=== PATIENT | male | born 1965 | race Caucasian/White ===

== ENCOUNTER → 2022-05-04 | Outpatient (CLI) | payer MEDICAID ==
[2022-05-04 17:04] LABS: Basophils # (A) 0.04 X 10*3/uL (0.00-0.10); Basophils % (A) 0.6 %; Eosinophils # (A) 0.14 X 10*3/uL (0.04-0.35); HCT 48.4 % (39.6-50.0); HGB 16.4 g/dL (13.0-17.0); Immature Grans, Automated 0.1 %; Lymphocytes # (A) 2.42 X 10*3/uL (0.90-5.00); Lymphocytes % (A) 33.8 %; MCH 31.4 pg (27.0-32.0); MCHC 33.9 g/dL (32.0-37.0); MCV 92.5 fL (80.0-97.0); Mean Platelet Volume 10.7 fL (9.5-12.2); Monocytes # (A) 0.53 X 10*3/uL (0.20-1.00); Monocytes % (A) 7.4 %; NRBC Per 100 WBC 0 /100 WBCS (0.0-0.0); Neutrophils # (A) 4.01 X 10*3/uL (1.80-7.70); Neutrophils % (A) 56.1 %; Platelet Count 302 X 10*3/uL (140-440); RBC 5.23 X 10*6/uL (4.40-5.60); RDW 12.9 % (11.5-14.5); WBC 7.15 X 10*3/uL (4.50-10.00)
[2022-05-04 17:22] LABS: ALT 51 U/L (10-49); AST 25 U/L (14-35); African American GFR (CKD) 102.8 (60.0-200.0); Albumin 4.8 g/dL (3.8-4.9); Albumin/Globulin Ratio 1.79 (1.60-3.17); Alkaline Phosphatase 81 U/L (41-126); BUN/Creat Ratio 11.05 Ratio (12.00-20.00); Blood Urea Nitrogen 10.6 mg/dL (9.0-27.0); Calcium 9.5 mg/dL (8.7-10.3); Carbon Dioxide 22.5 mmol/L (20.0-27.5); Chloride 106 mmol/L (96-109); Chol/HDL Ratio 4.98 Ratio; Globulin 2.7 g/dL (1.6-3.3); Glucose 125 mg/dL (70-110); LDL Cholesterol,Calculated 172.8 mg/dL (0.0-131.0); Non-African American GFR(CKD) 88.7 (60.0-200.0); Potassium 4.2 mmol/L (3.5-5.5); Sodium 140 mmol/L (135-145); Total Protein 7.5 g/dL (6.2-8.2)
== END | disposition home or self-care (01) ==
LOC: LABWHC1 09:24
PROVIDERS: ATTEND Internal Medicine
DX: Z12.5 Encounter for screening for malignant neoplasm of prostate (principal); I10 Essential (primary) hypertension
CPT/HCPCS: 36415; 80053; 80061; 84153; 84443; 85025

== ENCOUNTER → 2022-05-13 | Day surgery (SDC) | payer MEDICAID ==
[~2022-05-13] MED LIST: LACTATED RINGERS 1,000 ML IV SCH; LIDOCAINE 1% (10MG/ML) FOR IV START INTRADERMA PRN; PROPOFOL 10 MG/ML 20 ML VIAL IV ONE
[2022-05-13 10:26] VITALS: TEMP 98.7
--- NOTE | 2022-05-13 11:53 | P.PCN ---
Date of Procedure: 05/13/22 Preoperative Diagnosis: Colon cancer screening, history of colon polyps Postoperative Diagnosis: Colon cancer screening, colon polyps Procedure(s) Performed: Colonoscopy with polypectomy Anesthesia: MAC Surgeon: Brenda Mcgee Pathology: other Condition: stable Disposition: PACU Indications for Procedure: Patient presented for colon cancer screening Description of Procedure: Patient's taken the endoscopy suite where colonoscope is passed per rectum to the cecum. He had a good prep. There is some liquid material which is easily irrigated and aspirated. At 20 cm there is a small 4-5 mm polyps biopsied and destroyed with cold biopsy forceps. At about 7 cm there is a larger 1 cm polyp which is biopsied and destroyed with hot biopsy forceps in a piecemeal manner. Otherwise the colon was without evidence of ulcer, mass lesion, diverticuli or other mucosal abnormality. He tolerated the procedure without difficulty and is taken recovery room in satisfactory condition. We'll call with the report of the biopsies and let him know whether the follow-up is 3 or 5 years Plan - Discharge Summary New Discharge Prescriptions: No Action amLODIPine 10 mg PO HS Discharge Medication List amLODIPine 10 mg PO HS 05/09/22 [History] Discharge Disposition: HOME SELF-CARE
[2022-05-13 11:57] VITALS: RESP 16
[2022-05-13 12:09] VITALS: BP 135/97; PULSE 83
== END | disposition home or self-care (01) ==
LOC: ORWHC2ENDO 09:54
PROVIDERS: ATTEND Surgery
DX: Z12.11 Encounter for screening for malignant neoplasm of colon (principal); D12.6 Benign neoplasm of colon, unspecified; K63.5 Polyp of colon; Z86.010 Personal history of colon polyps; I10 Essential (primary) hypertension; Z87.891 Personal history of nicotine dependence; Z79.899 Other long term (current) drug therapy; Z98.52 Vasectomy status
CPT/HCPCS: 88305; 45380; 45384; J2704

== ENCOUNTER → 2022-05-23 | Outpatient (CLI) | payer MEDICAID ==
--- NOTE | 2022-05-24 07:42 | CTL ---
EXAMINATION TYPE: CT Low Dose Lung DATE OF EXAM ORDERED: 05/23/2022 HISTORY: Lung cancer screening CT DLP: 142.[address] CTDI: 4.0 mGy Automated exposure control for dose reduction was used. SCREENING VISIT: Initial lung screening COMPARISON: None TECHNIQUE: Low dose computed tomography scan was performed through the chest at 1 mm thick sections a nd reconstructed images in multiple planes at 1 mm and [address] DIAGNOSTIC QUALITY: Satisfactory FINDINGS: LUNG NODULES: 4 mm, solid, right upper lobe image 100 5 mm, solid, right middle lobe image 165 4 mm, solid, right lower lobe medially image 119 LUNGS: COPD: Severity: Mild Fibrosis: Severity: None Lymph nodes: None Other findings: None RIGHT PLEURAL SPACE: Effusion: None Calcification: None Thickening: None Pneumothorax: None LEFT PLEURAL SPACE: Effusion: None Calcification: None Thickening: None Pneumothorax: None HEART: Heart Size: Normal Coronary Calcification: Moderate Pericardial Effusion: None OTHER FINDINGS: Upper abdomen: None Bony thorax: Mild multilevel disc degeneration changes are seen throughout the spine. Supraclavicular region: None Other: Calcified gallstone is visualized in the luna hepatis. Probable hepatic cyst. IMPRESSION: 1. Scattered sub-6 m pulmonary nodules. 2. Cholelithiasis. 3. Moderate coronary artery atherosclerosis. 4. CT LUNG RAD AND CT CHEST RECOMMENDATION: Lung-Rad 2 Benign Appearance or Behavior: Continue annual sc reening with LDCT in 12 months. S Modifier (other clinically significant findings): S, moderate coronary artery atherosclerosis.
== END | disposition home or self-care (01) ==
LOC: RADCTMAIN 16:51
PROVIDERS: ATTEND Internal Medicine
DX: Z12.2 Encounter for screening for malignant neoplasm of respiratory organs (principal); I25.10 Atherosclerotic heart disease of native coronary artery without angina pectoris; Z87.891 Personal history of nicotine dependence
CPT/HCPCS: 71271

== ENCOUNTER → 2022-07-10 | Outpatient (CLI) | payer MEDICAID ==
--- NOTE | 2022-07-10 11:35 | CA ---
Stress Echo Report Berhane Agosto Age: 56 Gender: M : 1965 Exam Date: 07/10/2022 09:32 Exam Location: [facility] Ht (in): 70 Wt (lb): 240 Ordering Physician: Kiko Davis MD Referring Physician: CAMILLE WAITE,, [employer]: Marybel Pickens RDCS Technologist Procedure CPT: Indication: I25.10 Athscl heart disease ICD-9 Codes: Rhythm: Patient History: Cardiac Medications: Medications in past 24 hours: Contrast: Stress Results Protocol: Froy Total dose(mL): Exercise Duration (min:sec): Max ST Depression (mm): Angina Score: Resendez Score: METS: 9.1 Resting HR: 90 Resting BP: 150 / 99 Peak HR: 145 Peak BP: 145 / 83 Max Predicted HR: 165 88 % Max Predicted HR Target HR: 140 Double Product: [id number] Stress Summary: BP Response: Reason for Termination: Cardiac Symptoms: ECG Analysis Resting ECG: Stress ECG: Arrhythmia: Echo Analysis Resting Echo: Peak Echo Analysis: MEASUREMENTS (Male/Female) Normal Values CONCLUSIONS Good exercise tolerance. The patient walked for 7 minutes and 30 seconds Abnormal EKG response to exercise in terms of arrhythmia. The patient developed frequent PVCs and bigeminy and trigeminy Normal echocardiogram in response to exercise. Dr. Jovanny Pulido MD (Electronically Signed) Final Date: 10 July 2022 11:35
== END | disposition home or self-care (01) ==
LOC: RADNMMAIN 09:05
PROVIDERS: ATTEND Internal Medicine
DX: R94.31 Abnormal electrocardiogram [ECG] [EKG] (principal)
CPT/HCPCS: 93351; Q9950

== ENCOUNTER → 2023-05-17 | Outpatient (CLI) | payer MEDICAID ==
[2023-05-18 06:47] LABS: Basophils # (A) 0.05 X 10*3/uL (0.00-0.10); Basophils % (A) 0.8 %; Eosinophils # (A) 0.15 X 10*3/uL (0.04-0.35); Eosinophils % (A) 2.4 %; HCT 47.2 % (39.6-50.0); HGB 15.9 d/dL (13.0-17.0); Lymphocytes # (A) 2.09 X 10*3/uL (0.90-5.00); MCH 31.9 pg (27.0-32.0); MCHC 33.7 d/dL (32.0-37.0); MCV 94.8 FL (80.0-97.0); Mean Platelet Volume 11.1 FL (9.5-12.2); Monocytes # (A) 0.55 X 10*3/uL (0.20-1.00); Monocytes % (A) 8.9 %; NRBC Per 100 WBC 0 X 10*3/uL (0.00-0.01); Neutrophils % (A) 53.7 %; Platelet Count 266 X 10*3/uL (140-440); RBC 4.98 X 10*6/uL (4.40-5.60); RDW 13.2 % (11.5-14.5); WBC 6.15 X 10*3/uL (4.50-10.00)
[2023-05-18 08:09] LABS: ALT 48 U/L (10-49); AST 24 U/L (14-35); Albumin 4.7 d/dL (3.8-4.9); Albumin/Globulin Ratio 1.96 Ratio (1.60-3.17); Alkaline Phosphatase 80 U/L (41-126); Blood Urea Nitrogen 9.8 mg/dL (9.0-27.0); Calcium 9.7 mg/dL (8.7-10.3); Carbon Dioxide 25.1 mmol/L (21.6-31.8); Chloride 106 mmol/L (96-109); Globulin 2.4 d/dL (1.6-3.3); Glucose 111 mg/dL (70-110); Magnesium 2.2 mg/dL (1.5-2.4); Potassium 4.4 mmol/L (3.5-5.5); Sodium 142 mmol/L (135-145); Total Bilirubin 0.8 mg/dL (0.3-1.2); Total Protein 7.1 d/dL (6.2-8.2)
== END | disposition home or self-care (01) ==
LOC: LABWHC1 09:43
PROVIDERS: ATTEND Internal Medicine
DX: Z00.00 Encounter for general adult medical examination without abnormal findings (principal); Z11.59 Encounter for screening for other viral diseases; Z12.5 Encounter for screening for malignant neoplasm of prostate; R73.9 Hyperglycemia, unspecified
CPT/HCPCS: 36415; 80053; 80061; 83036; 83735; 84153; 84443; 85025; 86803

== ENCOUNTER → 2023-05-27 | Outpatient (CLI) | payer MEDICAID ==
--- NOTE | 2023-05-28 08:52 | CTL ---
EXAMINATION TYPE: CT Low Dose Lung DATE OF EXAM ORDERED: 05/27/2023 HISTORY: Z12.2 screening. Lung cancer screening CT DLP: 93.[address] CTDI: 2.4 mGy Automated exposure control for dose reduction was used. SCREENING VISIT: Follow-up COMPARISON: CT low-dose lung cancer screening 05/23/2022 TECHNIQUE: Low dose computed tomography scan was performed through the chest at 1 mm thick sections a nd reconstructed images in multiple planes at 1 mm and [address] DIAGNOSTIC QUALITY: Satisfactory FINDINGS: LUNG NODULES: Stable 4 mm right upper lobe pulmonary nodule (series 4, image 114). Stable pleural-based 5 mm right middle lobe pulmonary nodule (series 4, image 178). Stable medial right lower lobe 5 mm pulmonary nodule (series 4, image 131). No new or enlarging pulmonary nodules. LUNGS: COPD: Severity: Mild Fibrosis: Severity: None Lymph nodes: None Other findings: None RIGHT PLEURAL SPACE: Effusion: None Calcification: None Thickening: None Pneumothorax: None LEFT PLEURAL SPACE: Effusion: None Calcification: None Thickening: None Pneumothorax: None HEART: Heart Size: Normal Coronary Calcification: Moderate Pericardial Effusion: None OTHER FINDINGS: Upper abdomen: None Bony thorax: Mild multilevel disc degeneration changes are seen throughout the spine. No acute osseou s abnormality. Supraclavicular region: None Other: Cholelithiasis demonstrated. IMPRESSION: 1. Stable pulmonary nodules measuring up to 5 mm. No new or enlarging pulmonary nodules. 2. Cholelithiasis. 3. Moderate coronary artery atherosclerosis. CT LUNG RAD AND CT CHEST RECOMMENDATION: Lung-Rad 2 Benign Appearance or Behavior: Continue annual sc reening with LDCT in 12 months. S Modifier (other clinically significant findings): S, moderate coronary artery atherosclerosis.
== END | disposition home or self-care (01) ==
LOC: RADCTMAIN 16:51
PROVIDERS: ATTEND Internal Medicine
DX: Z12.2 Encounter for screening for malignant neoplasm of respiratory organs (principal); I25.10 Atherosclerotic heart disease of native coronary artery without angina pectoris; K80.20 Calculus of gallbladder without cholecystitis without obstruction; Z87.891 Personal history of nicotine dependence; R91.8 Other nonspecific abnormal finding of lung field
CPT/HCPCS: 71271

== ENCOUNTER → 2024-02-16 | Outpatient (CLI) | payer MEDICAID ==
--- NOTE | 2024-02-16 13:22 | XR ---
EXAMINATION TYPE: XR foot complete LT DATE OF EXAM: 02/16/2024 12:44 PM CLINICAL INDICATION:Male, 58 years old with history of M72.2 PLANTAR FASCIAL FIBROMATOSIS; [facility] COMPARISON: None TECHNIQUE: XR foot complete LT examined in the AP, oblique, and lateral projections. FINDINGS: No evidence of any acute osseous pathology. No evidence of soft tissue swelling. Joints are preserve d. Minimal plantar calcaneal spurring. Mild multifocal degeneration changes throughout the joints of the foot. IMPRESSION: 1. No evidence of acute fracture. 2. Minimal plantar calcaneal spurring. Consider further evaluation MRI foot.
== END | disposition home or self-care (01) ==
LOC: RADXRMAIN 12:28
PROVIDERS: ATTEND Internal Medicine
DX: M77.32 Calcaneal spur, left foot (principal); M72.2 Plantar fascial fibromatosis

== ENCOUNTER → 2024-06-26 | Outpatient (CLI) | payer MEDICAID ==
[2024-06-26 13:04] LABS: ALT 36 U/L (10-49); AST 19 U/L (14-35); Chol/HDL Ratio 5.33 Ratio; LDL Cholesterol,Calculated 164.3 mg/dL (0.0-131.0)
== END | disposition home or self-care (01) ==
LOC: LABWHC1 08:44
PROVIDERS: ATTEND Internal Medicine Cardiovascular Disease
DX: E78.2 Mixed hyperlipidemia (principal)
CPT/HCPCS: 36415; 80061; 84450; 84460

== ENCOUNTER → 2024-08-02 | Outpatient (CLI) | payer MEDICAID, SELFPAY ==
--- NOTE | 2024-08-07 22:31 | CTL ---
EXAMINATION TYPE: CT Low Dose Lung DATE OF EXAM ORDERED: 08/02/2024 HISTORY: 58-year-old male with Z1 2.2, Z87.891, former smoker, lung cancer screening, 20 pack year hi story. Lung cancer screening CT DLP: 95.[address] CTDI: 2.6 mGy Automated exposure control for dose reduction was used. SCREENING VISIT: Annual follow-up COMPARISON: 05/27/2023 TECHNIQUE: Low dose computed tomography scan was performed through the chest at 1 mm thick sections a nd reconstructed images in multiple planes at 1 mm and [address] DIAGNOSTIC QUALITY: Satisfactory FINDINGS: The heart is normal size without pericardial effusion. Prominent LAD coronary artery calcifications a re present. Borderline ectasia ascending aorta at 3.5 cm. Conventional arch vessel branching anatomy. No thoracic lymphadenopathy by CT size criteria. Mild diffuse bronchial wall thickening. No consolidation or pleural effusion. Stable tiny 3 mm lateral right lower lobe pulmonary nodule. A couple tiny 2 to 3 mm pulmonary nodules lateral right upper lobe unchanged as well. A couple punctate 2 to 3 mm nodules posterior right upper lung also unchanged. No suspicious new pulmonary nodule identified. Visualized upper abdomen shows no discrete abnormality. Bones: DISH lower thoracic spine. IMPRESSION: 1. LungRADS 2, benign. A few scattered 3 mm and smaller pulmonary nodules are unchanged. 2. Prominent LAD coronary artery calcifications. CT LUNG RAD AND CT CHEST RECOMMENDATION: Lung-Rad 2 Benign Appearance or Behavior: Continue annual sc reening with LDCT in 12 months. S Modifier (other clinically significant findings): None [facility], , 08/07/2024 10:28 PM
== END | disposition home or self-care (01) ==
LOC: RADCTMAIN 18:01
PROVIDERS: ATTEND Internal Medicine
DX: Z12.2 Encounter for screening for malignant neoplasm of respiratory organs (principal); I25.10 Atherosclerotic heart disease of native coronary artery without angina pectoris; R91.8 Other nonspecific abnormal finding of lung field; Z87.891 Personal history of nicotine dependence
CPT/HCPCS: 71271